=== PATIENT | male | born 1955 | race Caucasian/White ===

== ENCOUNTER 2022-01-23 18:28 | Observation (INO) ==
[2022-01-23] MEDS ORDERED: SODIUM CHLORIDE 0.9% 1000ML 1,000 ML IV STA (19:04)
[2022-01-23] MEDS ORDERED: ONDANSETRON INJ 2 MG/ML 2 ML VIAL IV STA (19:24)
--- NOTE | 2022-01-23 19:41 | XRay Report ---
XR chest 1V portable HISTORY: Atypical Chest Pain COMPARISON: Chest 06/10/2019. FINDINGS: There is chronic elevation of the right hemidiaphragm again noted. The lungs are clear. No pleural effusions. No pneumothorax. The heart remains top normal in size. IMPRESSION: No significant change compared to the prior study. No acute process. ACT 112: Negative or not required by law. Electronically signed by: Brandon Burris M.D. 01/23/2022 7:39 PM
[2022-01-23 19:42] LABS: Basophils # (auto) 0.02 K/uL (0-0.2); Basophils % (auto) 0.2 %; Eosinophils % (auto) 0.8 %; Hematocrit (blood only) 46.9 % (42-52); Hemoglobin 15.8 g/dL (14.0-18.0); INR 1.1 (0.9-1.1); Immature Granulocytes # (auto) 0.02 K/uL (0.00-0.02); Immature Granulocytes % (auto) 0.2 %; Lymphocytes # (auto) 1.22 K/uL (1.2-3.4); Lymphocytes % (auto) 9.7 %; Mean Corpuscular Hemoglobin 31.3 pg (25-34); Mean Corpuscular Hgb Conc 33.7 g/dL (32-36); Mean Corpuscular Volume 92.9 fL (80-100); Mean Platelet Volume 10.2 fL (7.4-10.4); Monocytes # (auto) 0.89 K/uL (0.11-0.59); Monocytes % (auto) 7.1 %; Neutrophils # (auto) 10.27 K/uL (1.4-6.5); Partial Thromboplastin Ratio 0.9; Partial Thromboplastin Time 23.9 Seconds (21.0-31.0); Platelet Count 181 K/uL (130-400); Prothrombin Time 11.4 Seconds (9.0-12.0); RDW Coefficient of Variation 13.5 % (11.5-14.5); RDW Standard Deviation 45.8 fL (36.4-46.3); Red Blood Count 5.05 M/uL (4.7-6.1); White Blood Count 12.52 K/uL (4.8-10.8)
[2022-01-23 19:51] LABS: Calcium 8.8 mg/dl (8.5-10.1); Creatinine Clr Calc Pharmacy 115.3 ml/min; Est GFR (African American) 108.5 ml/min; Est GFR (Non-African American) 93.6 ml/min; Potassium 3.9 mmol/L (3.5-5.1)
[2022-01-23 19:52] LABS: Troponin I High Sensitivity 5.8 pg/ml (0-20)
--- NOTE | 2022-01-23 19:54 | CT Scan Report ---
HEAD CT NONCONTRAST CT DOSE: 614.27 mGy.cm HISTORY: syncope vs seizure TECHNIQUE: Multiaxial CT images of the head were performed without the use of intravenous contrast. A utomated exposure control was utilized for this study. A dose lowering technique was utilized adheri ng to the principles of ALARA. Comparison: None. Findings: The paranasal sinuses and mastoid air cells are clear. The calvarium and skull base are int act. The ventricles and sulci are within normal limits. There is no mass, hematoma, midline shift, or acute infarct. Impression: No acute intracranial abnormality. ACT 112: Negative or not required by law. Electronically signed by: Brandon Burris M.D. 01/23/2022 7:52 PM
--- NOTE | 2022-01-23 20:02 | Emergency Department Note ---
History of Present Illness General Chief complaint: Syncope Stated complaint: syncope Time Seen by Provider: 01/23/22 18:58 History of Present Illness Provider complaint: Syncope versus seizure Onset (ago): hour(s) (2.5) Associated symptoms: no chest pain, no cough, no fever/chills, no headaches, no nausea/vomiting or no shortness of breath 66-year-old male presents emergency department for syncope versus seizure. Patient is here with . Patient reports that at 4:30 PM he became nauseous after religious and began dizzy. Patient states he passed out. reports when he passed out he was shaking and had a seizure. Patient states he does not think he had a seizure as this happened to him 30 years ago and he was told he does not have a history of seizures. No history of seizure disorder. No blood thinners. Patient denies any chest pain difficulty breathing or headache. No urinary incontinence. No tongue bite. Home Medications Medication Instructions Recorded Confirmed Type tamsulosin 0.4 mg capsule 0.4 mg PO DAILY 01/23/22 01/23/22 History Allergies Allergy/AdvReac Type Severity Reaction Status Date / Time No Known Allergies Allergy Verified 01/23/22 19:00 Past Med/Surg History Medical History BPH (benign prostatic hyperplasia) No pertinent family history Surgical History No pertinent past surgical history Social History Smoking Status: Never smoker Feels Safe at Home: Yes Review of Systems A total of 10 systems reviewed and were otherwise negative Physical Exam Vital Signs Vital Signs - 24 hr 01/23/22 18:33 01/23/22 19:04 01/23/22 20:00 Temperature 37.0 C Temperature Source Oral Pulse Rate 81 84 79 Respiratory Rate 15 24 22 Blood Pressure 149/85 H 136/78 129/70 Blood Pressure Mean 106 97 89 Pulse Oximetry 95 95 94 Oxygen Delivery Method Room Air Room Air Room Air Sepsis Recent Fever Within 48 Hours No Sepsis New/Unexplained Change in Mental Status No Sepsis Action Taken by Nursing No Action Required 01/23/22 20:40 Temperature Temperature Source Pulse Rate 78 Respiratory Rate 23 Blood Pressure Blood Pressure Mean Pulse Oximetry 93 Oxygen Delivery Method Room Air Sepsis Recent Fever Within 48 Hours Sepsis New/Unexplained Change in Mental Status Sepsis Action Taken by Nursing Physical Exam GENERAL: He is oriented to person, place, and time. He appears well-developed and well-nourished. He does not appear distressed. HENT: Exam performed. - Head: Normocephalic and atraumatic. - Right Ear: External ear normal. No mastoid tenderness. - Left Ear: External ear normal. No mastoid tenderness. - Mouth/Throat: The oropharynx is clear and moist. No trismus in the jaw. No dental abscesses or uvula swelling. No oropharyngeal exudate or tonsillar abscesses. EYES: Conjunctivae and EOM are normal. Pupils are equal, round, and reactive to light. Right eye exhibits no discharge. Left eye exhibits no discharge. No scleral icterus. NECK: Normal range of motion. Neck supple. No JVD present. No spinous process tenderness present. No carotid bruit present. No rigidity. No tracheal deviation and normal range of motion present. No Brudzinski's sign and no Kernig's sign noted. CV: Normal rate, regular rhythm, normal heart sounds and intact distal pulses. There is no peripheral edema. Palpable radial pulses bue. PULM/CHEST: Effort normal and breath sounds normal. No respiratory distress. No stridor. He has no wheezes. He has no rales. - Chest Wall: He exhibits no tenderness. ABD: The abdomen is soft. Bowel sounds are normal. He has no distension. No mass is present. There is no tenderness. There is no rebound, no guarding, no Salinas's sign and no tenderness at McBurney's point. Rovsig negative. MUSC/SKEL: Normal range of motion. There is no peripheral edema, tenderness or deformity. LYMPH: No cervical adenopathy. NEURO: He is alert and oriented to person, place, and time. He has normal strength. No cranial nerve deficit or sensory deficit. Coordination and gait normal. GCS eye subscore is 4. GCS verbal subscore is 5. GCS motor subscore is 6. Cerebellar tests wnl. SKIN: Skin is warm and dry. He is not diaphoretic. PSYCH: He has a normal mood and affect. Behavior is normal. Judgment and thought content normal. Course Course 1857: The patient was evaluated in room B7. A complete history and physical exam was performed Cardiac monitoring: An order was placed for continuous cardiac monitoring. The monitor shows a rate of 80 with sinus rhythm 2044: Vital signs stable. Labs and imaging within normal limits. It is thought that the patient most likely had a syncopal episode as he has no evidence of tongue bite, no evidence of urinary continence, lactic acid and magnesium within normal limits. Patient was offered inpatient observation but after long discussion with he and the the patient decided to follow-up with his PCP. Patient be discharged with follow-up PCP. DISCHARGE - Plan of care discussed with patient and questions answered. The patient was given both verbal and printed discharge instructions. The patient verbalized understanding and ability to comply. The patient is to seek outpatient follow up as noted in the discharge instructions. The patient verbalized understanding and ability to comply. The patient is discharged in stable condition. The patient was instructed to return for worsening symptoms. 2134: Vital signs stable. Made aware by the nursing staff that at the time of discharge patient was able to contact his PCP who advised him to be admitted to the hospital for observation. [facility] hospitalist team to [place] be notified. Administered Medications Discontinued Medications Sodium Chloride (Nss 1000ml) 1,000 mls @ 999 mls/hr IV .Q1H1M STA Stop: 01/23/22 20:04 Last Infusion: 01/23/22 20:16 Dose: 0 mls/hr Documented by: [id number] Admin: 01/23/22 19:15 Dose: 999 mls/hr Documented by: [id number] Ondansetron HCl (Ondansetron Inj 2 Mg/Ml 2 Ml Vial) 4 mg IV NOW STA Stop: 01/23/22 19:25 Last Admin: 01/23/22 19:26 Dose: 4 mg Documented by: [id number] Medical Decision Making Laboratory Data Result diagrams: 01/23/22 18:40 01/23/22 18:40 Lab Results 01/23/22 01/23/22 01/23/22 Range/Units 18:40 18:40 18:40 WBC 12.52 H (4.8-10.8) K/uL RBC 5.05 (4.7-6.1) M/uL Hgb 15.8 (14.0-18.0) g/dL Hct 46.9 (42-52) % MCV 92.9 (80-100) fL MCH 31.3 (25-34) pg MCHC 33.7 (32-36) g/dL RDW Std Deviation 45.8 (36.4-46.3) fL RDW Coeff of Arti 13.5 (11.5-14.5) % Plt Count 181 (130-400) K/uL MPV 10.2 (7.4-10.4) fL Immature Gran % (Auto) 0.2 % Neut % (Auto) 82.0 % Lymph % (Auto) 9.7 % [place] % (Auto) 7.1 % Eos % (Auto) 0.8 % Baso % (Auto) 0.2 % Neut # (Auto) 10.27 H (1.4-6.5) K/uL Lymph # (Auto) 1.22 (1.2-3.4) K/uL [place] # (Auto) 0.89 H (0.11-0.59) K/uL Eos # (Auto) 0.10 (0-0.5) K/uL Baso # (Auto) 0.02 (0-0.2) K/uL Immature Gran # (Auto) 0.02 (0.00-0.02) K/uL PT 11.4 (9.0-12.0) Seconds INR 1.1 (0.9-1.1) APTT 23.9 (21.0-31.0) Seconds PTT Ratio 0.9 Sodium 142 (136-145) mmol/L Potassium 3.9 (3.5-5.1) mmol/L Chloride 106 (98-107) mmol/L Carbon Dioxide 27 (21-32) mmol/L Anion Gap 9 (3-11) BUN 15 (6-23) mg/dl Creatinine 0.79 (0.6-1.4) mg/dl Est Cr Clr Drug Dosing 115.3 ml/min Est GFR ( Amer) 108.5 ml/min Est GFR (Non-Af Amer) 93.6 ml/min BUN/Creatinine Ratio 19.0 (10-20) Glucose 105 H (70-99(Fasting)) mg/dl POC Glucose (70-99) mg/dl Lactate (0.4-2.0) mmol/L Calcium 8.8 (8.5-10.1) mg/dl Magnesium (1.7-2.4) mg/dl Troponin I High Sens 5.8 (0-20) pg/ml Lipase 34 (11-82) U/L SARS-CoV-2, RNA, NAAT (NEGATIVE) 01/23/22 01/23/22 01/23/22 Range/Units 18:40 19:14 19:28 WBC (4.8-10.8) K/uL RBC (4.7-6.1) M/uL Hgb (14.0-18.0) g/dL Hct (42-52) % MCV (80-100) fL MCH (25-34) pg MCHC (32-36) g/dL RDW Std Deviation (36.4-46.3) fL RDW Coeff of Arti (11.5-14.5) % Plt Count (130-400) K/uL MPV (7.4-10.4) fL Immature Gran % (Auto) % Neut % (Auto) % Lymph % (Auto) % [place] % (Auto) % Eos % (Auto) % Baso % (Auto) % Neut # (Auto) (1.4-6.5) K/uL Lymph # (Auto) (1.2-3.4) K/uL [place] # (Auto) (0.11-0.59) K/uL Eos # (Auto) (0-0.5) K/uL Baso # (Auto) (0-0.2) K/uL Immature Gran # (Auto) (0.00-0.02) K/uL PT (9.0-12.0) Seconds INR (0.9-1.1) APTT (21.0-31.0) Seconds PTT Ratio Sodium (136-145) mmol/L Potassium (3.5-5.1) mmol/L Chloride (98-107) mmol/L Carbon Dioxide (21-32) mmol/L Anion Gap (3-11) BUN (6-23) mg/dl Creatinine (0.6-1.4) mg/dl Est Cr Clr Drug Dosing ml/min Est GFR ( Amer) ml/min Est GFR (Non-Af Amer) ml/min BUN/Creatinine Ratio (10-20) Glucose (70-99(Fasting)) mg/dl POC Glucose 128 H (70-99) mg/dl Lactate 1.1 (0.4-2.0) mmol/L Calcium (8.5-10.1) mg/dl Magnesium 1.9 (1.7-2.4) mg/dl Troponin I High Sens (0-20) pg/ml Lipase (11-82) U/L SARS-CoV-2, RNA, NAAT (NEGATIVE) 01/23/22 Range/Units 21:42 WBC (4.8-10.8) K/uL RBC (4.7-6.1) M/uL Hgb (14.0-18.0) g/dL Hct (42-52) % MCV (80-100) fL MCH (25-34) pg MCHC (32-36) g/dL RDW Std Deviation (36.4-46.3) fL RDW Coeff of Arti (11.5-14.5) % Plt Count (130-400) K/uL MPV (7.4-10.4) fL Immature Gran % (Auto) % Neut % (Auto) % Lymph % (Auto) % [place] % (Auto) % Eos % (Auto) % Baso % (Auto) % Neut # (Auto) (1.4-6.5) K/uL Lymph # (Auto) (1.2-3.4) K/uL [place] # (Auto) (0.11-0.59) K/uL Eos # (Auto) (0-0.5) K/uL Baso # (Auto) (0-0.2) K/uL Immature Gran # (Auto) (0.00-0.02) K/uL PT (9.0-12.0) Seconds INR (0.9-1.1) APTT (21.0-31.0) Seconds PTT Ratio Sodium (136-145) mmol/L Potassium (3.5-5.1) mmol/L Chloride (98-107) mmol/L Carbon Dioxide (21-32) mmol/L Anion Gap (3-11) BUN (6-23) mg/dl Creatinine (0.6-1.4) mg/dl Est Cr Clr Drug Dosing ml/min Est GFR ( Amer) ml/min Est GFR (Non-Af Amer) ml/min BUN/Creatinine Ratio (10-20) Glucose (70-99(Fasting)) mg/dl POC Glucose (70-99) mg/dl Lactate (0.4-2.0) mmol/L Calcium (8.5-10.1) mg/dl Magnesium (1.7-2.4) mg/dl Troponin I High Sens (0-20) pg/ml Lipase (11-82) U/L SARS-CoV-2, RNA, NAAT NEGATIVE (NEGATIVE) Imaging Data Radiologist's Impression: Chest X-Ray 01/23/22 19:05 XR chest 1V portable HISTORY: Atypical Chest Pain COMPARISON: Chest 06/10/2019. FINDINGS: There is chronic elevation of the right hemidiaphragm again noted. The lungs are clear. No pleural effusions. No pneumothorax. The heart remains top normal in size. IMPRESSION: No significant change compared to the prior study. No acute process. ACT 112: Negative or not required by law. Electronically signed by: Brandon Burris M.D. 01/23/2022 7:[address] 01/23/22 19:[address] DOSE: 614.27 mGy.cm HISTORY: syncope vs seizure TECHNIQUE: Multiaxial CT images of the head were performed without the use of intravenous contrast. Automated exposure control was utilized for this study. A dose lowering technique was utilized adhering to the principles of ALARA. Comparison: None. Findings: The paranasal sinuses and mastoid air cells are clear. The calvarium and skull base are intact. The ventricles and sulci are within normal limits. There is no mass, hematoma, midline shift, or acute infarct. Impression: No acute intracranial abnormality. ACT 112: Negative or not required by law. Electronically signed by: Brandon Burris M.D. 01/23/2022 7:52 PM ECG Data Indication: + syncope Rate (beats per minute): 86 Rhythm: + normal sinus ECG Intervals/blocks: + Normal QRS, + Normal FL and + Normal QT-c ECG ST segments: + Normal ST segments MDM Narrative 1858: The patient was evaluated in room B7. A complete history and physical exam was performed Cardiac monitoring: An order was placed for continuous cardiac monitoring. The monitor shows a rate of 80 with sinus rhythm 2044: Vital signs stable. Labs and imaging within normal limits. It is thought that the patient most likely had a syncopal episode as he has no evidence of tongue bite, no evidence of urinary continence, lactic acid and magnesium within normal limits. Patient was offered inpatient observation but after long discussion with he and the the patient decided to follow-up with his PCP. Patient be discharged with follow-up PCP. DISCHARGE - Plan of care discussed with patient and questions answered. The patient was given both verbal and printed discharge instructions. The patient verbalized understanding and ability to comply. The patient is to seek outpatient follow up as noted in the discharge instructions. The patient verbalized understanding and ability to comply. The patient is discharged in stable condition. The patient was instructed to return for worsening symptoms. 2135: Vital signs stable. Made aware by the nursing staff that at the time of discharge patient was able to contact his PCP who advised him to be admitted to the hospital for observation. [facility] hospitalist team to [place] be notified. Impression & Plan Syncope Discharge Plan Visit Data Chief Complaint: Syncope Stated Complaint: syncope Discharge Problem: Syncope Patient Disposition: Being Evaluated by Hospitalist Discharge Instructions Praneeth/Other Patient Handouts: ED [facility] Syncope (Fainting) Forms Stand Alone Forms: [facility], Virtual Emergency Department, Important Visit Information Prescriptions Prescriptions: No Action tamsulosin 0.4 mg capsule 0.4 mg PO DAILY RF: 0 Referrals Referrals: Dwight Wilson MD [Outside Practitioners] - (Follow-up in 1-7 days.)
--- NOTE | 2022-01-23 22:49 | History & Physical Report ---
Date of Service January 23, 2022 Assessment & Plan (1) Syncope: Plan: Patient is a 66 yo male with PMHx of BPH admitted for syncope. Syncope - Suspect secondary to vaso vagal episode s/p vomiting - Head CT 01/23 negative - CXR 01/23 with no acute process - EKG 01/23 with NSR at 85, RBBB - Echo pending - Troponin neg x2 - Pt with regular diet; tolerating po intake; received NSS IVF in ER; will defer further IVF at this time - Zofran prn nausea - Will observe on tele for arrhythmias - Check CBC in AM - Check BMP and mag in AM BPH - Continue home flomax Dispo: admit to tele for obs FENGI: Regular Code status: Full code (2) BPH (benign prostatic hyperplasia): History of Present Illness Primary Care Provider: Jeffy Martinez is a 66 yo male with PMHx of BPH who presented to the ER today after experiencing a syncopal episode. Patient reports that he was in his baseline state of health this morning and early afternoon; he went to [employer] and then jayme t out shopping. He returned home around 2:00 pm and began to experience nausea. 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 At 4:30 pm patient had an episode of vomiting into a cup; he quickly stood up to dump out the cup when he had acute dizziness and subsequent syncope. Patient denies head trauma. His went to get help and before she came back patient was able to stand up and walk over to the table to sit down. Patient feels that he was "out" for only a brief period of time. There was no witnessed seizure activity or jerking movements; he did not bite his tongue, have any trauma to his body, urinary/fecal incontinence, confusion, or amnesia. Patient has a subsequent mild BRANHAM, nausea (now resolved) and had one additional episode of vomiting on arrival to the ED (no further vomiting). Patient denies fever chills, sinus pain, congestion, runny nose, cough, SOB, CP, palpitations, sensation of tachycardia, sensation of bradycardia, abd pain, or any other symptoms. Interestingly, patient notes that he has a hx syncope 30 years ago. At that time, patient reports experiencing 3 syncopal episodes in 1 day. While seeking medical evaluation for the syncope, patient reports that he "flat lined and was then brought back." He states that he underwent extensive testing and had a temporary pacemaker but a cause of the syncope/arrest was never found. He has had no cardiac history or complications since that time. Patient specifically denies hx of DM, HTN, or HLD. He has never been a tobacco smoker. Drinks alcohol regularly and has 2-6 beers daily; no hx of etoh withdrawal. No other drug use. Allergies Allergy/AdvReac Type Severity Reaction Status Date / Time No Known Allergies Allergy Verified 01/23/22 19:00 Home Medications Medication Instructions Recorded Confirmed Type tamsulosin 0.4 mg capsule 0.4 mg PO DAILY 01/23/22 01/23/22 History famotidine 20 mg tablet 20 mg PO DAILY #5 tab 01/24/22 Rx pantoprazole 40 mg tablet,delayed 40 mg PO DAILY 42 Days #42 tab 01/25/22 Rx release Past Med/Surg History Medical History BPH (benign prostatic hyperplasia) No pertinent family history Surgical History No pertinent past surgical history Social History Smoking Status: Never smoker Hx Alcohol Use: Yes Alcohol type: beer Hx Substance Use: No Beliefs That Will Affect Care: Anabaptist Current Living Situation: Spouse and Family Feels Safe at Home: Yes Assistive Devices: None Review of Systems Review of Systems: See HPI Physical Exam Physical Exam: GENERAL: No acute distress. Well developed and well nourished. Vital signs reviewed as above. EYES: PERRLA. EOMI. Anicteric sclerae. HENT: Moist mucous membranes. No pharyngeal erythema or exudates. No cervical lymphadenopathy. No thyromegaly. RESPIRATORY: Clear to auscultation bilaterally. No wheezing, rales, or rhonchi. CARDIOVASCULAR: Regular rate and rhythm. No murmurs. ABDOMEN: Soft, non-tender and non-distended. Normal bowel sounds. EXTREMITIES: No edema. Non-tender. SKIN: Warm, dry. No rashes or lesions. NEUROLOGIC: A/O x3. No focal neurological deficits. CN II-XII grossly intact, but not individually tested. PSYCHIATRIC: Cooperative. Appropriate mood and affect. Results & Data Results & Data ([facility]) Vital Signs (Past 12 Hours) Vital Signs Temp Pulse Resp BP Pulse Ox 01/23/22 22:00 74 24 125/72 93 01/23/22 21:42 85 14 128/77 95 01/23/22 20:43 81 24 124/74 94 01/23/22 20:40 78 23 93 01/23/22 20:00 79 22 129/70 94 01/23/22 19:04 84 24 136/78 95 01/23/22 18:33 37.0 C 81 15 149/85 H 95 Laboratory Results 01/24/22 01/23/22 01/23/22 Range/Units 01:38 21:42 19:28 WBC (4.8-10.8) K/uL RBC (4.7-6.1) M/uL Hgb (14.0-18.0) g/dL Hct (42-52) % MCV (80-100) fL MCH (25-34) pg MCHC (32-36) g/dL RDW Std Deviation (36.4-46.3) fL RDW Coeff of Arti (11.5-14.5) % Plt Count (130-400) K/uL MPV (7.4-10.4) fL Immature Gran % (Auto) % Neut % (Auto) % Lymph % (Auto) % [place] % (Auto) % Eos % (Auto) % Baso % (Auto) % Neut # (Auto) (1.4-6.5) K/uL Lymph # (Auto) (1.2-3.4) K/uL [place] # (Auto) (0.11-0.59) K/uL Eos # (Auto) (0-0.5) K/uL Baso # (Auto) (0-0.2) K/uL Immature Gran # (Auto) (0.00-0.02) K/uL PT (9.0-12.0) Seconds INR (0.9-1.1) APTT (21.0-31.0) Seconds PTT Ratio Sodium (136-145) mmol/L Potassium (3.5-5.1) mmol/L Chloride (98-107) mmol/L Carbon Dioxide (21-32) mmol/L Anion Gap (3-11) BUN (6-23) mg/dl Creatinine (0.6-1.4) mg/dl Est Cr Clr Drug Dosing ml/min Est GFR ( Amer) ml/min Est GFR (Non-Af Amer) ml/min BUN/Creatinine Ratio (10-20) Glucose (70-99(Fasting)) mg/dl POC Glucose 128 H (70-99) mg/dl Lactate (0.4-2.0) mmol/L Calcium (8.5-10.1) mg/dl Magnesium (1.7-2.4) mg/dl Troponin I High Sens 3.8 (0-20) pg/ml Lipase (11-82) U/L SARS-CoV-2, RNA, NAAT NEGATIVE (NEGATIVE) 01/23/22 01/23/22 01/23/22 Range/Units 19:14 18:40 18:40 WBC (4.8-10.8) K/uL RBC (4.7-6.1) M/uL Hgb (14.0-18.0) g/dL Hct (42-52) % MCV (80-100) fL MCH (25-34) pg MCHC (32-36) g/dL RDW Std Deviation (36.4-46.3) fL RDW Coeff of Arti (11.5-14.5) % Plt Count (130-400) K/uL MPV (7.4-10.4) fL Immature Gran % (Auto) % Neut % (Auto) % Lymph % (Auto) % [place] % (Auto) % Eos % (Auto) % Baso % (Auto) % Neut # (Auto) (1.4-6.5) K/uL Lymph # (Auto) (1.2-3.4) K/uL [place] # (Auto) (0.11-0.59) K/uL Eos # (Auto) (0-0.5) K/uL Baso # (Auto) (0-0.2) K/uL Immature Gran # (Auto) (0.00-0.02) K/uL PT (9.0-12.0) Seconds INR (0.9-1.1) APTT (21.0-31.0) Seconds PTT Ratio Sodium 142 (136-145) mmol/L Potassium 3.9 (3.5-5.1) mmol/L Chloride 106 (98-107) mmol/L Carbon Dioxide 27 (21-32) mmol/L Anion Gap 9 (3-11) BUN 15 (6-23) mg/dl Creatinine 0.79 (0.6-1.4) mg/dl Est Cr Clr Drug Dosing 115.3 ml/min Est GFR ( Amer) 108.5 ml/min Est GFR (Non-Af Amer) 93.6 ml/min BUN/Creatinine Ratio 19.0 (10-20) Glucose 105 H (70-99(Fasting)) mg/dl POC Glucose (70-99) mg/dl Lactate 1.1 (0.4-2.0) mmol/L Calcium 8.8 (8.5-10.1) mg/dl Magnesium 1.9 (1.7-2.4) mg/dl Troponin I High Sens 5.8 (0-20) pg/ml Lipase 34 (11-82) U/L SARS-CoV-2, RNA, NAAT (NEGATIVE) 01/23/22 01/23/22 Range/Units 18:40 18:40 WBC 12.52 H (4.8-10.8) K/uL RBC 5.05 (4.7-6.1) M/uL Hgb 15.8 (14.0-18.0) g/dL Hct 46.9 (42-52) % MCV 92.9 (80-100) fL MCH 31.3 (25-34) pg MCHC 33.7 (32-36) g/dL RDW Std Deviation 45.8 (36.4-46.3) fL RDW Coeff of Arti 13.5 (11.5-14.5) % Plt Count 181 (130-400) K/uL MPV 10.2 (7.4-10.4) fL Immature Gran % (Auto) 0.2 % Neut % (Auto) 82.0 % Lymph % (Auto) 9.7 % [place] % (Auto) 7.1 % Eos % (Auto) 0.8 % Baso % (Auto) 0.2 % Neut # (Auto) 10.27 H (1.4-6.5) K/uL Lymph # (Auto) 1.22 (1.2-3.4) K/uL [place] # (Auto) 0.89 H (0.11-0.59) K/uL Eos # (Auto) 0.10 (0-0.5) K/uL Baso # (Auto) 0.02 (0-0.2) K/uL Immature Gran # (Auto) 0.02 (0.00-0.02) K/uL PT 11.4 (9.0-12.0) Seconds INR 1.1 (0.9-1.1) APTT 23.9 (21.0-31.0) Seconds PTT Ratio 0.9 Sodium (136-145) mmol/L Potassium (3.5-5.1) mmol/L Chloride (98-107) mmol/L Carbon Dioxide (21-32) mmol/L Anion Gap (3-11) BUN (6-23) mg/dl Creatinine (0.6-1.4) mg/dl Est Cr Clr Drug Dosing ml/min Est GFR ( Amer) ml/min Est GFR (Non-Af Amer) ml/min BUN/Creatinine Ratio (10-20) Glucose (70-99(Fasting)) mg/dl POC Glucose (70-99) mg/dl Lactate (0.4-2.0) mmol/L Calcium (8.5-10.1) mg/dl Magnesium (1.7-2.4) mg/dl Troponin I High Sens (0-20) pg/ml Lipase (11-82) U/L SARS-CoV-2, RNA, NAAT (NEGATIVE) Diagnostic Findings [place], [place] [phone] XRay Report Patient:ALEJANDRO CALDERON Admit Date:01/23/22 MR#:[id number] Address1:[address] Acct ID:[id number] Address2: Date:1955 [facility] Zip:[place] [address] Age:66 Location:ED Sex:M Room/Bed: Att Phy: Diagnosis:syncope Izabela Phy:Dwight Wilson MD Service Date:01/23/22 Fam Phy: Interpreting Phy:Brandon Burris MDAana m Phy: Ordering Phy:Abdon Morgan MD cc: ~ XR chest 1V portable HISTORY: Atypical Chest Pain COMPARISON: Chest 06/10/2019. FINDINGS: There is chronic elevation of the right hemidiaphragm again noted. The lungs are clear. No pleural effusions. No pneumothorax. The heart remains top normal in size. IMPRESSION: No significant change compared to the prior study. No acute process. ACT 112: Negative or not required by law. Electronically signed by: Brandon Burris M.D. 01/23/2022 7:39 PM Dictated:01/23/221938 Transcribed: 01/23/221938 [place], [place] [phone] CT Scan Report Patient:ALEJANDRO CALDERON Admit Date:01/23/22 MR#:[id number] Address1:[address] [place] [address] Acct ID:[id number] Address2: Date:1955 [facility] Zip:[place] [address] Age:66 Location:ED Sex:M Room/Bed: Att Phy: Diagnosis:syncope Izabela Phy:Dwight Wilson MD Service Date:01/23/22 [facility] Phy: Interpreting Phy:Brandon Burris MDAdmit Phy: Ordering Phy:Abdon Morgan MD cc: ~ HEAD CT NONCONTRAST CT DOSE: 614.27 mGy.cm HISTORY: syncope vs seizure TECHNIQUE: Multiaxial CT images of the head were performed without the use of intravenous contrast. Automated exposure control was utilized for this study. A dose lowering technique was utilized adhering to the principles of ALARA. Comparison: None. Findings: The paranasal sinuses and mastoid air cells are clear. The calvarium and skull base are intact. The ventricles and sulci are within normal limits. There is no mass, hematoma, midline shift, or acute infarct. Impression: No acute intracranial abnormality. ACT 112: Negative or not required by law. Electronically signed by: Brandon Burris M.D. 01/23/2022 7:52 PM Dictated:01/23/221947 Transcribed: 01/23/221947 Supervising Physician Co-Signing Physician Notes Attending addendum: I have physically seen this patient, have supervised the medical residents activities, and agree with the H&P unless as otherwise noted. Assessment and Plan: Syncope- CT head negative Troponin negative x2 The patient will be admitted to telemetry for serial cardiac enzymes, serial EKG's, cardiac rhythm monitoring and a 2-D echocardiogram with Dopplers. Zofran 4 mg IV every 6 hours as needed BPH- Continue Flomax Remaining orders and notations as noted Resident Activity Tracking Resident Involvement: Resident Care Provided Care Provided: Adult Hospital Medicine (1) Syncope Syncope type: unspecified Qualified Code(s): R55 - Syncope and collapse
[2022-01-24] MEDS ORDERED: MAGNESIUM HYDROXIDE SUSP 30 ML UDC PO PRN (00:28)
[2022-01-24] MEDS ORDERED: ACETAMINOPHEN 325 MG TAB PO PRN (00:28)
[2022-01-24] MEDS ORDERED: POLYETHYLENE (MIRALAX) 17 GM PACK PO PRN (00:28)
--- NOTE | 2022-01-24 06:47 | Hospitalist Progress Note ---
Date of Service January 24, 2022 Assessment & Plan (1) Syncope: Plan: Patient is a 66 yo male with reported history of ?arrhythmogenic syncope >30 years ago and BPH who presented following an episode of syncope occurring 01/23 Syncopal Episode - Occurred following getting up from seated position in the setting of nausea x 1 day - Work-up as follows: - History not c/w seizure, ACS - CBC, CMP without hematologic/electrolyte abnormalities - Imaging (CT-H, CXR) without e/o acute processes - ECG with non-specific T-wave changes compared to 2019 in anterior leads - Troponin negative x 2 - Telemetry: NSR since admission, no arrhythmias or block detected - Primarily suspect due to orthostasis vs. neurocardiogenic/vagal response in the setting of nausea, vomiting x 1 day and poor PO intake. His reported history of what sounds to be arrhythmogenic syncope >30 years ago (requiring a TEMPORARY pacer) is noted -- though his ECG and telemetry reveal no activity c/w this since admission. Awaiting TTE to r/o structural cause. - Await TTE - Check orthostatics - Continue PO intake - Zofran prn nausea - Monitor with Telemetry BPH - Continue home Flomax PPX: Ambulate ad lilly Dispo: admit to tele for obs FENGI: Regular Code status: Full code (2) BPH (benign prostatic hyperplasia): Admission and Anticipated Discharge Date Admission Date: January 23, 2022 Review of Systems Review of Systems: as per HPI Physical Exam Physical Exam: General: []-year old [] who is alert, oriented, and appears in no acute distress. HEENT: NCAT. - Eyes - Sclera are white, anicteric, and without injection. - Mouth - MMM - Neck - supple, no appreciable JVD Cardiac: Normal rate and regular rhythm; S1 and S2 present with no murmurs, rubs, or gallops. Pulmonary: Good respiratory effort with symmetric expansion of the chest. No use of accessory muscles. Lungs were clear to auscultation bilaterally with no crackles or wheezes. Abdominal: Normoactive bowel sounds. Abdomen was soft, nondistended, and non- tender to palpation. Extremities: Upper and lower extremities are warm and well perfused. [] peripheral edema in the lower extremities bilaterally Psych: Well-developed, well-nourished, appropriately dressed for occasion. Behavior is cooperative and appropriate. Affect is WNL. Insight is appropriate. Neuro: - Cranial Nerves: CN I, IX, XIII, and X - not assessed. II - PERRL. III/IV/ - EOMs WNL. No nystagmus. V - Facial sensation in tact in all three divisions; jaw opening WNL. VII - Patient is able to smile symmetrically and keep eyes close against resistance. IX - Patient is able to shrug shoulders against resistance. XI - Soft palate raises equally and appropriately while saying "ah." XII - patient is able to stick out tongue and deviate from [id number] appropriately. - Motor: UE - Finger, wrist, elbow, and shoulder strength is 5/5 bilaterally. LE - Hip, knee, and ankle strength is 5/5 bilaterally. - Sensation: UE and LE sensation to light touch is grossly intact bilaterally. - Reflexes - Biceps 2+ b/l; brachioradialis 2+ b/l; triceps 2+ b/l; patellar 2+ b/l; Achilles 2+ b/l. No clonus. - [id number]: WNL b/l. No dysmetria. [id number]; WNL b/l. Results & Data Results & Data ([facility]) Vital Signs (Past 12 Hours) Vital Signs Temp Pulse Pulse Resp BP BP BP 01/24/22 02:57 36.8 C 64 18 133/72 01/24/22 00:22 69 01/24/22 00:00 36.8 C 70 18 146/91 H 01/23/22 23:00 68 24 125/98 01/23/22 22:00 74 24 125/72 01/23/22 21:42 85 14 128/77 01/23/22 20:43 81 24 124/74 01/23/22 20:40 78 23 01/23/22 20:00 79 22 129/70 01/23/22 19:04 84 24 136/78 Pulse Ox 01/24/22 02:57 96 01/24/22 00:22 01/24/22 00:00 96 01/23/22 23:00 93 01/23/22 22:00 93 01/23/22 21:42 95 01/23/22 20:43 94 01/23/22 20:40 93 01/23/22 20:00 94 01/23/22 19:04 95 Resident Activity Tracking Resident Involvement: Resident Care Provided Care Provided: Adult Hospital Medicine (1) Syncope Syncope type: unspecified Qualified Code(s): R55 - Syncope and collapse
[2022-01-24] MEDS: ALUMINUM/MAGNESIUM SUSP 30 ML UDC PO PRN ×2 (07:34→14:36)
[2022-01-24] MEDS: ONDANSETRON INJ 2 MG/ML 2 ML VIAL IV PRN ×2 (07:34→14:36)
[2022-01-24] MEDS: TAMSULOSIN HCL 0.4 MG CAP PO SCH (09:04)
--- NOTE | 2022-01-24 09:26 | Discharge Summary ---
Date of Service January 24, 2022 Admission HPI Per Admitting Provider Juan is a 66 yo male with PMHx of BPH who presented to the ER today after experiencing a syncopal episode. Patient reports that he was in his baseline state of health this morning and early afternoon; he went to rastafari and then went out shopping. He returned home around 2:00 pm and began to experience nausea. Patient drank a beer in hopes that it "would calm the stomach." He does note eating questionable Kinyarwanda soup 2 days ago but has otherwise been eating and drinking regularly (today had a breakfast burrito for breakfast and java project manager salad w/ sweet tea for lunch). At 4:30 pm patient had an episode of vomiting int o a cup; he quickly stood up to dump out the cup when he had acute dizziness and subsequent syncope. Patient denies head trauma. His went to get help and before she came back patient was able to stand up and walk over to the table to sit down. Patient feels that he was "out" for only a brief period of time. There was no witnessed seizure activity or jerking movements; he did not bite his tong ue, have any trauma to his body, urinary/fecal incontinence, confusion, or amnesia. Patient has a subsequent mild BRANHAM, nausea (now resolved) and had one additional episode of vomiting on arrival to the ED (no further vomiting). Patient denies fever chills, sinus pain, congestion, runny nose, cough, SOB, CP, palpitations, sensation of tachycardia, sensation of bradycardia, abd pain, or any other symptoms. Interestingly, patient notes that he has a hx syncope 30 years ago. At that time, patient reports experiencing 3 syncopal episodes in 1 day. While seeking medical evaluation for the syncope, patient reports that he "flat lined and was then brought back." He states that he underwent extensive testing and had a temporary pacemaker but a cause of the syncope/arrest was never found. He has branham d no cardiac history or complications since that time. Patient specifically denies hx of DM, HTN, or HLD. He has never been a tobacco smoker. Drinks alcohol regularly and has 2-6 beers daily; no hx of etoh withdrawal. No other drug use. Admission Exam Per Admitting Provider GENERAL: No acute distress. Well developed and well nourished. Vital signs reviewed as above. EYES: PERRLA. EOMI. Anicteric sclerae. HENT: Moist mucous membranes. No pharyngeal erythema or exudates. No cervical lymphadenopathy. No thyromegaly. RESPIRATORY: Clear to auscultation bilaterally. No wheezing, rales, or rhonchi. CARDIOVASCULAR: Regular rate and rhythm. No murmurs. ABDOMEN: Soft, non-tender and non-distended. Normal bowel sounds. EXTREMITIES: No edema. Non-tender. SKIN: Warm, dry. No rashes or lesions. NEUROLOGIC: A/O x3. No focal neurological deficits. CN II-XII grossly intact, but not individually tested. PSYCHIATRIC: Cooperative. Appropriate mood and affect. Principal Diagnosis syncope Discharge Exam General: 66-year old male who is alert, oriented, and appears in no acute distress. HEENT: NCAT. - Eyes - Sclera are white, anicteric, and without injection. - Mouth - MMM - Neck - supple, no appreciable JVD Cardiac: Normal rate and regular rhythm; S1 and S2 present with no murmurs, rubs, or gallops. Pulmonary: Good respiratory effort with symmetric expansion of the chest. No use of accessory muscles. Lungs were clear to auscultation bilaterally with no crackles or wheezes. Abdominal: Normoactive bowel sounds. Abdomen was soft, nondistended, and non- tender to palpation. Extremities: Upper and lower extremities are warm and well perfused. No peripheral edema in the lower extremities bilaterally Psych: Well-developed, well-nourished, appropriately dressed for occasion. Behavior is cooperative and appropriate. Affect is WNL. Insight is appropriate. Neuro: - Cranial Nerves: CN I, IX, XIII, and X - not assessed. II - PERRL. III/IV/ - EOMs WNL. No nystagmus. V - Facial sensation in tact in all three divisions; jaw opening WNL. VII - Patient is able to smile symmetrically and keep eyes close against resistance. IX - Patient is able to shrug shoulders against resistance. XI - Soft palate raises equally and appropriately while saying "ah." XII - patient is able to stick out tongue and deviate from [id number] appropriately. - Motor: UE - Finger, wrist, elbow, and shoulder strength is 5/5 bilaterally. LE - Hip, knee, and ankle strength is 5/5 bilaterally. Discharge Data Allergies Allergy/AdvReac Type Severity Reaction Status Date / Time No Known Allergies Allergy Verified 01/23/22 19:00 Consultations 01/23/22 21:38 ED Decision to Admit Stat Ordered Studies 01/23/22 19:05 CT head/brain wo con Stat HEAD CT NONCONTRAST CT DOSE: 614.27 mGy.cm HISTORY: syncope vs seizure TECHNIQUE: Multiaxial CT images of the head were performed without the use of intravenous contrast. Automated exposure control was utilized for this study. A dose lowering technique was utilized adhering to the principles of ALARA. Comparison: None. Findings: The paranasal sinuses and mastoid air cells are clear. The calvarium and skull base are intact. The ventricles and sulci are within normal limits. There is no mass, hematoma, midline shift, or acute infarct. Impression: No acute intracranial abnormality. 01/24/22: Transthoracic Echocardiogram - LV systolic function is normal - Mild concentric LVH - Diastolic dysfunction, grade II - Mildly dilated LA - RVSP elevated at 30-40 mmHg - Borderline aortic root dilation (4.0cm) Hospital Course (1) Syncope: Patient is a 66 yo male with reported history of ?arrhythmogenic syncope >30 years ago and BPH who presented following an episode of syncope occurring 01/23, suspected to be secondary to increased vagal tone and orthostasis following an episode of vomiting. Syncopal Episode - Occurred following an episode of vomiting followed by standing up to travel to the bathroom - Work-up as follows: - History not c/w seizure, ACS - CBC, CMP without hematologic/electrolyte abnormalities - Imaging (CT-H, CXR) without e/o acute processes - ECG with non-specific T-wave changes compared to 2019 in anterior leads - Troponin negative x 2 - Telemetry: NSR since admission, no arrhythmias or block detected - Primarily suspect due to mixed vagal and orthostatic response following an episode of vomiting and day worth of poor PO intake (vomited while sitting/lying down, got up, and passed out). - His reported history of what sounds to be arrhythmogenic syncope >30 years ago (requiring a TEMPORARY pacer) is noted -- his ECG and telemetry reveal no activity c/w this since admission.. - TTE: Normal LV systolic function, mild cLVH, mild elevated RSVP, borderline aortic dilation - Orthostatics (s/p hydration, PO intake) Stable: Lying (142/77, HR 60), Sitting (148/89, HR 65), Standing (156/82, HR 68) - Consider 30-day event monitor as outpatient given reported h/o arrhythmogenic syncope >30 years ago to officially rule this out as possible cause Nausea with Vomiting - Began DOA following consumption of "bad soup" and a salad - Serial abdominal exams benign. No CP/SOB. Troponin negative x 2. Telemetry without change. - Suspect gastroenteritis, possibly foodborne related. Responded well to Zofran, improved PTD - RX Zofran at d/c BPH - Continue home Flomax Code status: Identifies as FULL CODE (2) BPH (benign prostatic hyperplasia): Total Time Total Time Spent Total Time Spent (In Minutes): 30 Discharge Plan Discharge Items Patient Disposition: Home - Self-Care Reason For Visit: SYNCOPE Discharge Diagnosis: syncope Activity: Per Instructions section Non-emergency contact: Primary Care Provider Call non-emergency contact if: your symptoms worsen and your temperature is above 101 Follow-up/Referrals: Jeffy Payne CRNP [Primary Care Provider] - (PLEASE CALL YOUR PRIMARY CARE PROVIDER TO SCHEDULE A DISCHARGE FOLLOW-UP APPOINTMENT WITHIN 7-10 DAYS.) Diet: Regular Addtl Attending Provider Instructions: You were seen at [facility] following an episode of passing out ("syncope"). Thankfully, your labs, imaging studies, and telemetry (heart monitoring from the pads on your chest) did not reveal anything that would explain your syncopal episode. Given this, it seems most likely that this event was caused by increased vagal tone (pressure against the "rest or digest" nerve following an episode of vomiting -- which slows down the heart rate) and getting up too fast ("orthostatic hypotension"). At this time, believe that your GI discomfort is likely related to reflux. During your work-up, we followed-up on your inguinal hernia -- which has been investigated before by your outpatient provider. The ultrasound was reassuring and showed that the hernia reduced (was not "entrapped") normally. Please review the ultrasound with your PCP and consider referral to surgery for correction if it is bothering you Medications added upon your discharge, which will be sent to your pharmacy: - Zofran 4mg every 8 hours as needed for nausea - Pantoprazole (Protonix) 40mg daily x 6 weeks, possibly longer - will require follow-up with your primary care physician * A prescription for famotidine (Pepcid) may have been sent to your pharmacy initially - this is also an acid medication, however, would recommend you start with Protonix initially and hold from picking up this medication. Please follow-up with your PCP within 1-2 weeks to review this visit. At this time, please discuss getting set up with an event monitor (30-day heart monitoring) to ensure no abnormal heart rhythms may have contributed to this event. While it seems less likely, your hospitalization >30 years ago is noted. Again, there was no evidence while you were here that an abnormal heart rhythm caused this -- but it's important to completely rule this out with more data. IF you experience any more passing out, chest pain, palpitations, shortness of breath, intractable nausea/vomiting, or other worrisome symptoms, please seek medical attention immediately; if your symptoms are severe, please return to the ED for immediate evaluation. It was a pleasure caring for you while here, and we wish you all the best in your recovery. Pending Studies at Discharge: No Stand-Alone Forms: My [facility] [employer], Smoking Cessation Medications and DC Order Prescriptions: New ondansetron 4 mg tablet,disintegrating 4 mg PO Q8H PRN (Reason: nausea and vomiting) 5 Days Qty: 15 RF: 0 famotidine 20 mg tablet 20 mg PO DAILY Qty: 5 RF: 0 pantoprazole 40 mg tablet,delayed release (DR/EC) 40 mg PO DAILY 42 Days Qty: 42 RF: 0 Continued tamsulosin 0.4 mg capsule 0.4 mg PO DAILY RF: 0 Discharge Orders: Discharge Order (Routine); Ordered 01/25/22 Ordered By: Mandeep Dacosta/Other Patient Handouts: GERD Lifestyle Changes, Causes of Syncope, Understanding Vasovagal Syncope Admission Data Admit Date/Time: 01/23/22 23:18 Attending Provider: Renan Rodríguez Admit Provider: Angy Best Primary Care Provider: Jeffy Payne Other Providers: Vladimir Thompson Other Interventions: Discharge Summary Assessment (RN) Last Done: 01/25/22 08:43 Supervising Physician Co-Signing Physician Notes Attending attestation Pt seen and examined in concert with Dr. Brady. In agreement with the documented findings as noted in the resident documentation with any exceptions or additions as noted here. Resolution of interval N/V, no shortness of breath, dizziness or lighthead edness. On examination, S1/S2 nl RRR no MCG. CTAB. Abd NT/ND BS+ve. Palpable, reducible right inguinal hernia without TTP. Data Echo shows preserved left ventricular function, mild concentric left ventricular hypertrophy, grade 2 diastolic dysfunction. Right ventricular systolic pressure 30 to44 mmHg. Borderline aortic root dilatation. CT the head, noncontrast, was unremarkable Troponins negative. CBC and BMP unremarkable Syncopal episode in the setting of N/V - likely vasovagal. Consider event monitor during outpatient follow up in the setting of remote h/o arrhythmia Gastroenteritis - continue pantoprazole PO as noted. Ondansetron PRN nausesa. Encourage dietary forebearance. R inguinal hernia - reducible, fat containing hernia - outpatient surgical evaluation recommended. Else see resident documentation as noted. Total attending physician time spent with this patient's care on the day of discharge: 35 minutes. Resident Activity Tracking Resident Involvement: Resident Care Provided Care Provided: Adult Hospital Medicine
[2022-01-24] MEDS ORDERED: FAMOTIDINE 20 MG TAB PO STA (09:31)
[2022-01-24 10:35] LABS: Basophils # (auto) 0.01 K/uL (0-0.2); Basophils % (auto) 0.1 %; Eosinophils # (auto) 0.16 K/uL (0-0.5); Eosinophils % (auto) 2.1 %; Hematocrit (blood only) 45.1 % (42-52); Hemoglobin 15.2 g/dL (14.0-18.0); Immature Granulocytes # (auto) 0.01 K/uL (0.00-0.02); Immature Granulocytes % (auto) 0.1 %; Lymphocytes # (auto) 1.82 K/uL (1.2-3.4); Lymphocytes % (auto) 23.7 %; Mean Corpuscular Hemoglobin 31.3 pg (25-34); Mean Corpuscular Hgb Conc 33.7 g/dL (32-36); Mean Corpuscular Volume 92.8 fL (80-100); Mean Platelet Volume 10.2 fL (7.4-10.4); Monocytes # (auto) 0.86 K/uL (0.11-0.59); Monocytes % (auto) 11.2 %; Neutrophils # (auto) 4.83 K/uL (1.4-6.5); Neutrophils % (auto) 62.8 %; Platelet Count 172 K/uL (130-400); RDW Coefficient of Variation 13.6 % (11.5-14.5); RDW Standard Deviation 46.3 fL (36.4-46.3); Red Blood Count 4.86 M/uL (4.7-6.1); White Blood Count 7.69 K/uL (4.8-10.8)
[2022-01-24 10:57] LABS: BUN Creatinine Ratio 20.3 (10-20); Calcium 8.4 mg/dl (8.5-10.1); Creatinine Clr Calc Pharmacy 142.2 ml/min; Est GFR (African American) 118.3 ml/min; Magnesium 1.9 mg/dl (1.7-2.4); Potassium 3.8 mmol/L (3.5-5.1)
--- NOTE | 2022-01-24 11:50 | XCELERA ---
[id number]
[2022-01-24] MEDS ORDERED: PROMETHAZINE HCL 12.5 MG in SODIUM CHLORIDE 0.9% 50 ML IV STA (11:54)
[2022-01-24] MEDS ORDERED: FAMOTIDINE 20 MG in SYRINGE 3 ML IV STA (11:54)
[2022-01-24] MEDS ORDERED: ALUMINUM/MAGNESIUM SUSP 18 ML, LIDOCAINE VISCOUS 2% SOLN 6 ML, BARCODE IDENTIFIER 1 EA PO ONE (12:00)
--- NOTE | 2022-01-24 12:59 | Electrocardiogram Report ---
Test Reason : Blood Pressure : / mmHG Vent. Rate : 086 BPM Atrial Rate : 086 BPM P-R Int : 164 ms QRS Dur : 092 ms QT Int : 352 ms P-R-T Axes : 048 -09 009 degrees QTc Int : 421 ms Normal sinus rhythm Possible Left atrial enlargement Left ventricular hypertrophy Abnormal ECG When compared with ECG of 10-JUN-2019 04:12, Non-specific change in ST segment in Anterior leads Nonspecific T wave abnormality now evident in Anterior leads Confirmed by Conner Oconnor ([id number]) on 01/24/2022 12:58:30 PM Referred By: REFERRED SELF Confirmed By:Moreno Oconnor
[2022-01-24] MEDS ORDERED: CALCIUM CARBONATE 500 MG CHEWABLE TAB PO PRN (14:29)
--- NOTE | 2022-01-24 14:48 | Hospitalist Progress Note ---
Date of Service January 24, 2022 Assessment & Plan (1) Syncope: Plan: Patient is a 66 yo male with reported history of ?arrhythmogenic syncope >30 years ago and BPH who presented following an episode of syncope occurring 01/23, suspected to be secondary to increased vagal tone and orthostasis following an episode of vomiting. Syncopal Episode - Occurred following an episode of vomiting followed by standing up to travel to the bathroom - Work-up as follows: - History not c/w seizure, ACS - CBC, CMP without hematologic/electrolyte abnormalities - Imaging (CT-H, CXR) without e/o acute processes - ECG with non-specific T-wave changes compared to 2019 in anterior leads - Troponin negative x 2 - Telemetry: NSR since admission, no arrhythmias or block detected - Primarily suspect due to mixed vagal and orthostatic response following an episode of vomiting and day worth of poor PO intake (vomited while sitting/lying down, got up, and passed out). - His reported history of what sounds to be arrhythmogenic syncope >30 years ago (requiring a TEMPORARY pacer) is noted -- his ECG and telemetry reveal no activity c/w this since admission.. - TTE: Normal LV systolic function, mild cLVH, mild elevated RSVP, borderline aortic dilation - Orthostatics (s/p hydration, PO intake) Stable: Lying (142/77, HR 60), Sitting (148/89, HR 65), Standing (156/82, HR 68) - Consider 30-day event monitor as outpatient given reported h/o arrhythmogenic syncope >30 years ago to officially rule this out as possible cause Nausea with Vomiting - Began DOA following consumption of "bad soup" and a salad; during admission, reporting a lot of reflux - Serial abdominal exams benign. No CP/SOB. Troponin negative x 2. Telemetry without change. - Suspect mixed picture of [place] and gastroenteritis, possibly foodborne related. Responded well to Zofran - Trial Protonix, Pepsid ALEXANDR; Tums, Maalox PRN; Zofran PRN - Consider imaging, lipase level if worsening or beginning to associate with pain BPH - Continue home Flomax Code status: Identifies as FULL CODE Dispo: MS/Tele PPX: SCDs Diet: Regular (2) BPH (benign prostatic hyperplasia): Admission and Anticipated Discharge Date Admission Date: January 23, 2022 Supervising Physician Co-Signing Physician Notes I also saw the patient confirmed cruz portions of the history and the physical examination. I agree with the impression and plan as noted in the resident documentation. Are exam earlier this morning, the patient was feeling well and we discussed discharge. However, at lunchtime, he developed some nausea and emesis. He has had no chest pain or shortness of breath. No recurrent syncopal symptoms. No abnormalities found on continuous telemetry. Exam 120/58, 68, 18, 36.9, 90% on room air Pleasant alert. No acute distress. Heart regular rate and rhythm. Lungs clear with nonlabored respirations Abdomen soft and nontender Data Echo shows preserved left ventricular function, mild concentric left ventricular hypertrophy, grade 2 diastolic dysfunction. Right ventricular systolic pressure 30 to44 mmHg. Borderline aortic root dilatation. CT the head, noncontrast, was unremarkable Troponins negative. CBC and BMP unremarkable Syncopal episode in the setting of nausea with vomiting, suspect vagally mediated At proton pump inhibitor Continue as needed antiemetics Since patient is feeling better, will trial clears for dinner Reevaluation in a.m. Subjective NAEO. At the bedside this morning, was feeling pretty good. As the day went on, after eating his breakfast, had several small episodes of nb/nb emesis. C/O a lot of reflux and heart burn. No CP or SOB. No lightheadedness/dizziness. Zofran and Phenergan helped. Passing gas and stool. Review of Systems Review of Systems: as per HPI Physical Exam Physical Exam: General: 66-year old male who is alert, oriented, and appears in no acute distress. HEENT: NCAT. - Eyes - Sclera are white, anicteric, and without injection. - Mouth - MMM - Neck - supple, no appreciable JVD Cardiac: Normal rate and regular rhythm; S1 and S2 present with no murmurs, rubs, or gallops. Pulmonary: Good respiratory effort with symmetric expansion of the chest. No use of accessory muscles. Lungs were clear to auscultation bilaterally with no crackles or wheezes. Abdominal: Normoactive bowel sounds. Abdomen was soft, nondistended, and non- tender to palpation. Extremities: Upper and lower extremities are warm and well perfused. no peripheral edema in the lower extremities bilaterally Results & Data Results & Data ([facility]) Vital Signs (Past 12 Hours) Vital Signs Temp Pulse Pulse Resp BP BP Pulse Ox 01/24/22 12:28 36.8 C 64 18 134/88 146/91 H 93 01/24/22 11:39 36.8 C 64 18 134/88 93 01/24/22 08:00 76 01/24/22 07:30 37.1 C 64 18 124/72 95 01/24/22 02:57 36.8 C 64 18 133/72 96 Resident Activity Tracking Resident Involvement: Resident Care Provided Care Provided: Adult Hospital Medicine (1) Syncope Syncope type: unspecified Qualified Code(s): R55 - Syncope and collapse
[2022-01-24] MEDS: PANTOprazole 40 MG in SYRINGE 0 ML IV SCH (15:40)
[2022-01-25] MEDS: TAMSULOSIN HCL 0.4 MG CAP PO SCH (08:18)
--- NOTE | 2022-01-25 08:42 | Discharge Summary ---
Date of Service January 25, 2022 Admission HPI Per Admitting Provider Juan is a 66 yo male with PMHx of BPH who presented to the ER today after experiencing a syncopal episode. Patient reports that he was in his baseline state of health this morning and early afternoon; he went to islam and then went out shopping. He returned home around 2:00 pm and began to experience nausea. Patient drank a beer in hopes that it "would calm the stomach." He does note eating questionable Japanese soup 2 days ago but has otherwise been eating and drinking regularly (today had a breakfast burrito for breakfast and pie chef salad w/ sweet tea for lunch). At 4:30 pm patient had an episode of vomiting int o a cup; he quickly stood up to dump out the cup when he had acute dizziness and subsequent syncope. Patient denies head trauma. His went to get help and before she came back patient was able to stand up and walk over to the table to sit down. Patient feels that he was "out" for only a brief period of time. There was no witnessed seizure activity or jerking movements; he did not bite his tong ue, have any trauma to his body, urinary/fecal incontinence, confusion, or amnesia. Patient has a subsequent mild BRANHAM, nausea (now resolved) and had one additional episode of vomiting on arrival to the ED (no further vomiting). Patient denies fever chills, sinus pain, congestion, runny nose, cough, SOB, CP, palpitations, sensation of tachycardia, sensation of bradycardia, abd pain, or any other symptoms. Interestingly, patient notes that he has a hx syncope 30 years ago. At that time, patient reports experiencing 3 syncopal episodes in 1 day. While seeking medical evaluation for the syncope, patient reports that he "flat lined and was then brought back." He states that he underwent extensive testing and had a temporary pacemaker but a cause of the syncope/arrest was never found. He has branham d no cardiac history or complications since that time. Patient specifically denies hx of DM, HTN, or HLD. He has never been a tobacco smoker. Drinks alcohol regularly and has 2-6 beers daily; no hx of etoh withdrawal. No other drug use. Admission Exam Per Admitting Provider GENERAL: No acute distress. Well developed and well nourished. Vital signs reviewed as above. EYES: PERRLA. EOMI. Anicteric sclerae. HENT: Moist mucous membranes. No pharyngeal erythema or exudates. No cervical lymphadenopathy. No thyromegaly. RESPIRATORY: Clear to auscultation bilaterally. No wheezing, rales, or rhonchi. CARDIOVASCULAR: Regular rate and rhythm. No murmurs. ABDOMEN: Soft, non-tender and non-distended. Normal bowel sounds. EXTREMITIES: No edema. Non-tender. SKIN: Warm, dry. No rashes or lesions. NEUROLOGIC: A/O x3. No focal neurological deficits. CN II-XII grossly intact, but not individually tested. PSYCHIATRIC: Cooperative. Appropriate mood and affect. Principal Diagnosis syncopal episode nausea inguinal hernia Discharge Exam General: 66-year old male who is alert, oriented, and appears in no acute distress. HEENT: NCAT. - Eyes - Sclera are white, anicteric, and without injection. - Mouth - MMM - Neck - supple, no appreciable JVD Cardiac: Normal rate and regular rhythm; S1 and S2 present with no murmurs, rubs, or gallops. Pulmonary: Good respiratory effort with symmetric expansion of the chest. No use of accessory muscles. Lungs were clear to auscultation bilaterally with no crackles or wheezes. Abdominal: Normoactive bowel sounds. Abdomen was soft, nondistended, and non- tender to palpation. Extremities: Upper and lower extremities are warm and well perfused. No periph eral edema in the lower extremities bilaterally Psych: Well-developed, well-nourished, appropriately dressed for occasion. Behavior is cooperative and appropriate. Affect is WNL. Insight is appropriate. Neuro: - Cranial Nerves: CN I, IX, XIII, and X - not assessed. II - PERRL. III/IV/ - EOMs WNL. No nystagmus. V - Facial sensation in tact in all three divisions; jaw opening WNL. VII - Patient is able to smile symmetrically and keep eyes close against resistance. IX - Patient is able to shrug shoulders against resistance. XI - Soft palate raises equally and appropriately while saying "ah." XII - patient is able to stick out tongue and deviate from [id number] appropriately. - Motor: UE - Finger, wrist, elbow, and shoulder strength is 5/5 bilaterally. LE - Hip, knee, and ankle strength is 5/5 bilaterally. Discharge Data Allergies Allergy/AdvReac Type Severity Reaction Status Date / Time No Known Allergies Allergy Verified 01/23/22 19:00 Consultations 01/23/22 21:38 ED Decision to Admit Stat Ordered Studies 01/23/22 19:05 CT head/brain wo con Stat HEAD CT NONCONTRAST CT DOSE: 614.27 mGy.cm HISTORY: syncope vs seizure TECHNIQUE: Multiaxial CT images of the head were performed without the use of intravenous contrast. Automated exposure control was utilized for this study. A dose lowering technique was utilized adhering to the principles of ALARA. Comparison: None. Findings: The paranasal sinuses and mastoid air cells are clear. The calvarium and skull base are intact. The ventricles and sulci are within normal limits. There is no mass, hematoma, midline shift, or acute infarct. Impression: No acute intracranial abnormality. 01/25/22 08:24 US abdomen limited Routine 01/24/22: Transthoracic Echocardiogram - LV systolic function is normal - Mild concentric LVH - Diastolic dysfunction, grade II - Mildly dilated LA - RVSP elevated at 30-40 mmHg - Borderline aortic root dilation (4.0cm) ULTRASOUND RIGHT GROIN NONVASCULAR (01/25/22) CLINICAL HISTORY: Right groin pain. Assess for hernia. COMPARISON STUDY: No priors. FINDINGS: Real-time grayscale sonography of the right groin is performed to assess for inguinal hernia. There is a reducible fat-containing right inguinal hernia. There is trace fluid within the hernia sac. No bowel is seen. IMPRESSION: There is a reducible fat and fluid containing right inguinal hernia. Hospital Course (1) Syncope: Patient is a 66 yo male with reported history of ?arrhythmogenic syncope >30 years ago and BPH who presented following an episode of syncope occurring 01/23, suspected to be secondary to increased vagal tone and orthostasis following an episode of vomiting. Syncopal Episode - Occurred following an episode of vomiting followed by standing up to travel to the bathroom - Work-up as follows: - History not c/w seizure, ACS - CBC, CMP without hematologic/electrolyte abnormalities - Imaging (CT-H, CXR) without e/o acute processes - ECG with non-specific T-wave changes compared to 2019 in anterior leads - Troponin negative x 2 - Orthostatics were negative - Telemetry: NSR since admission, no arrhythmias or block detected - Primarily suspect due to mixed vagal and orthostatic response following an episode of vomiting and day worth of poor PO intake (vomited while sitting/lying down, got up, and passed out). - His reported history of what sounds to be arrhythmogenic syncope >30 years ago (requiring a TEMPORARY pacer) is noted -- his ECG and telemetry reveal no activity c/w this since admission.. - TTE: Normal LV systolic function, mild cLVH, mild elevated RSVP, borderline aortic dilation - Consider 30-day event monitor as outpatient given reported h/o arrhythmogenic syncope >30 years ago to officially rule this out as possible cause Nausea with Vomiting - Began DOA following consumption of "bad soup" and a salad - Serial abdominal exams benign. No CP/SOB. Troponin negative x 2. Telemetry without change. Inguinal hernia noted, no features of entrapment to suggest this as underlying etiology (also improved prior to discharge) - Suspect gastroenteritis, possibly foodborne related, alongside GERD. Responded well to Zofran and antacid therapy, improved PTD -- Continue pantoprazole 40mg daily for 6 weeks after discharge - RX Zofran at d/c p.r.n. RIGHT Inguinal Hernia - History of inguinal hernia reported later in stay - Observed in standing position, reducible in supine; no e/o entrapment/incarceration - US: There is a reducible fat and fluid containing right inguinal hernia. - Recommend outpatient surgical evaluation pending further symptoms BPH - Continue home Flomax Code status: Identifies as FULL CODE (2) BPH (benign prostatic hyperplasia): Total Time Total Time Spent Total Time Spent (In Minutes): 30 Discharge Plan Discharge Items Patient Disposition: Home - Self-Care Reason For Visit: SYNCOPE Discharge Diagnosis: syncope Activity: Per Instructions section Non-emergency contact: Primary Care Provider Call non-emergency contact if: your symptoms worsen and your temperature is above 101 Follow-up/Referrals: Jeffy Payne CRNP [Primary Care Provider] - (PLEASE CALL YOUR PRIMARY CARE PROVIDER TO SCHEDULE A DISCHARGE FOLLOW-UP APPOINTMENT WITHIN 7-10 DAYS.) Diet: Regular Addtl Attending Provider Instructions: You were seen at [facility] following an episode of passing out ("syncope"). Thankfully, your labs, imaging studies, and telemetry (heart monitoring from the pads on your chest) did not reveal anything that would explain your syncopal episode. Given this, it seems most likely that this event was caused by increased vagal tone (pressure against the "rest or digest" nerve following an episode of vomiting -- which slows down the heart rate) and getting up too fast ("orthostatic hypotension"). At this time, believe that your GI discomfort is likely related to reflux. During your work-up, we followed-up on your inguinal hernia -- which has been investigated before by your outpatient provider. The ultrasound was reassuring and showed that the hernia reduced (was not "entrapped") normally. Please review the ultrasound with your PCP and consider referral to surgery for correction if it is bothering you Medications added upon your discharge, which will be sent to your pharmacy: - Zofran 4mg every 8 hours as needed for nausea - Pantoprazole (Protonix) 40mg daily x 6 weeks, possibly longer - will require follow-up with your primary care physician * A prescription for famotidine (Pepcid) may have been sent to your pharmacy initially - this is also an acid medication, however, would recommend you start with Protonix initially and hold from picking up this medication. Please follow-up with your PCP within 1-2 weeks to review this visit. At this time, please discuss getting set up with an event monitor (30-day heart monitoring) to ensure no abnormal heart rhythms may have contributed to this event. While it seems less likely, your hospitalization >30 years ago is noted. Again, there was no evidence while you were here that an abnormal heart rhythm caused this -- but it's important to completely rule this out with more data. IF you experience any more passing out, chest pain, palpitations, shortness of breath, intractable nausea/vomiting, or other worrisome symptoms, please seek medical attention immediately; if your symptoms are severe, please return to the ED for immediate evaluation. It was a pleasure caring for you while here, and we wish you all the best in your recovery. Pending Studies at Discharge: No Stand-Alone Forms: My Materia, Smoking Cessation Medications and DC Order Prescriptions: New ondansetron 4 mg tablet,disintegrating 4 mg PO Q8H PRN (Reason: nausea and vomiting) 5 Days Qty: 15 RF: 0 famotidine 20 mg tablet 20 mg PO DAILY Qty: 5 RF: 0 pantoprazole 40 mg tablet,delayed release (DR/EC) 40 mg PO DAILY 42 Days Qty: 42 RF: 0 Continued tamsulosin 0.4 mg capsule 0.4 mg PO DAILY RF: 0 Discharge Orders: Discharge Order (Routine); Ordered 01/25/22 Ordered By: Mandeep Dacosta/Other Patient Handouts: GERD Lifestyle Changes, Causes of Syncope, Understanding Vasovagal Syncope Admission Data Admit Date/Time: 01/23/22 23:18 Attending Provider: Renan Rodríguez Admit Provider: Angy Best Primary Care Provider: Jeffy Payne Other Providers: Vladimir Thompson Other Interventions: Discharge Summary Assessment (RN) Last Done: 01/25/22 08:43 Supervising Physician Co-Signing Physician Notes Attending attestation Pt seen and examined in concert with Dr. Brady. In agreement with the documented findings as noted in the resident documentation with any exceptions or additions as noted here. Resolution of interval N/V, no shortness of breath, dizziness or lightheadedness. On examination, S1/S2 nl RRR no MCG. CTAB. Abd NT/ND BS+ve. Palpable, reducible right inguinal hernia without TTP. Data Echo shows preserved left ventricular function, mild concentric left ventricular hypertrophy, grade 2 diastolic dysfunction. Right ventricular systolic pressure 30 to44 mmHg. Borderline aortic root dilatation. CT the head, noncontrast, was unremarkable Troponins negative. CBC and BMP unremarkable Syncopal episode in the setting of N/V - likely vasovagal. Consider event monitor during outpatient follow up in the setting of remote h/o arrhythmia Gastroenteritis - continue pantoprazole PO as noted. Ondansetron PRN nausesa. Encourage dietary forebearance. R inguinal hernia - reducible, fat containing hernia - outpatient surgical evaluation recommended. Else see resident documentation as noted. Total attending physician time spent with this patient's care on the day of discharge: 35 minutes. Resident Activity Tracking Resident Involvement: Resident Care Provided Care Provided: Adult Hospital Medicine
--- NOTE | 2022-01-25 10:42 | Ultrasound Report ---
ULTRASOUND RIGHT GROIN NONVASCULAR CLINICAL HISTORY: Right groin pain. Assess for hernia. COMPARISON STUDY: No priors. FINDINGS: Real-time grayscale sonography of the right groin is performed to assess for inguinal herni a. There is a reducible fat-containing right inguinal hernia. There is trace fluid within the hernia sac. No bowel is seen. IMPRESSION: There is a reducible fat and fluid containing right inguinal hernia. Electronically signed by: Luis Caputo M.D. 01/25/2022 10:40 AM
[2022-01-25] MEDS: PANTOprazole 40 MG in SYRINGE 0 ML IV SCH (10:58)
--- NOTE | 2022-01-31 20:36 | Billing Data ---
Date of Service January 31, 2022 Coding Level of Care Code INT OBSERVATION CARE 70M LVL 3
== END 2022-01-25 12:21 | disposition home or self-care (01) ==
LOC: 2W 18:28 → ED 18:28 → SUATTDRO 23:18 → 2W 01-24 00:02